=== PATIENT | male | born 1955 | race Caucasian/White ===

== ENCOUNTER 2019-09-14 13:12 | Outpatient (CLI) | payer MEDICARE, SELFPAY ==
--- NOTE | ~2019-09-14 | XR_ITS ---
XR knee RT 3V DATE: 09/14/2019 13:38 INDICATION: Osteoarthritis TECHNIQUE: 3 views COMPARISON: None FINDINGS: There is mild lateral subluxation at the femoral tibial joint. There is severe joint space narrowing at the medial compartment and mild periarticular spurring. There is prominence of the tibia l spines. There is mild periarticular spurring at the lateral and patellofemoral compartments. Some patchy sclerosis of the proximal tibia which may be related to old infarct or chondroid matrix b enign lesion. No fracture or dislocation or joint effusion. No periosteal reaction or bone destruction. IMPRESSION: Tricompartment osteophytes, most prominent at the medial compartment Mild lateral subluxation at the femoral tibial joint Reviewed, dictated and finalized at location B. IMPRESSION: Tricompartment osteophytes, most prominent at the medial compartmen t Mild lateral subluxation at the femoral tibial joint
== END 2019-09-14 13:13 | disposition home or self-care (01) ==
PROVIDERS: PCP Internal Medicine; Visit Provider Internal Medicine
DX: M17.11 Unilateral primary osteoarthritis, right knee (principal)
CPT/HCPCS: 73562